=== PATIENT | female | born 1985 | race Caucasian/White ===

== ENCOUNTER → 2019-01-29 08:44 | Outpatient (CLI) | payer SELFPAY ==
[2019-01-29 12:45] LABS: Hematocrit 41.5 % (37-47); Hemoglobin 13.7 g/dl (12.0-15.0); Mean Corpuscular Hgb 29.1 pg (27.0-32.0); Mean Corpuscular Volume 88.1 fL (81-99); Mean Platelet Vol. 9.3 fl (6.2-12.0); Platelet Count 398 K/mm3 (150-450); RBC Distribution Width CV 13.9 % (11.6-14.6); RBC Distribution Width SD 45.2 fl (35.1-43.9); Red Blood Count 4.71 M/mm3 (4.2-5.4); White Blood Count 10.5 K/mm3 (4.4-11.0)
[2019-01-29 13:02] LABS: Scan Indicated on CBC? Y/N NO
[2019-01-29 13:05] LABS: hCG Titer Quant., Serum < 1 mIU/mL (1-3)
[2019-01-29 13:10] LABS: Hemoglobin A1c 5.2 % (4.2-6.3)
[2019-01-29 13:30] LABS: Estradiol 66.3 pg/mL; Free T3 2.8 pg/mL (2.18-3.98); T4 Free Direct 0.91 ng/dL (0.76-1.46); Thyroid Stim Hormone (TSH) 3.28 uIU/mL (0.358-3.74)
== END ==
PROVIDERS: Visit Provider Obstetrics & Gynecology
DX: N92.6 Irregular menstruation, unspecified (principal); N94.6 Dysmenorrhea, unspecified
CPT/HCPCS: 36415; 82670; 83036; 84144; 84403; 84439; 84443; 84481; 84702; 85027

== ENCOUNTER 2019-02-09 07:32 | Emergency (ER) | payer OTHER, SELFPAY ==
[2019-02-09 07:34] VITALS: BP 120/76; PULSE 100; RESP 16; TEMP 36.8; O2SAT 97; BMI 31.6
--- NOTE | 2019-02-09 07:51 | CT_ITS ---
STUDY: CT ABDOMEN AND PELVIS WITHOUT CONTRAST REASON FOR EXAM: Female, 33 years old. Right lower quadrant pain with radiation towards the umbilical area and lower back. RADIATION DOSAGE (If Supplied By Facility): CTDIvol = ( 11.52 ) mGy, DLP = ( 604.24 ) mGycm TECHNIQUE: Transaxial images were obtained from the dome of the diaphragm to the symphysis pubis without oral contrast, and without intravenous contrast. Sagittal and coronal images were reconstructed. Individualized dose optimization techniques were used for this CT. COMPARISON: None. FINDINGS: The visualized lung bases are unremarkable. The visualized portions of the heart are within normal limits. Normal liver. Normal gallbladder and extrahepatic biliary system. Normal spleen. Normal pancreas. Normal bilateral adrenal glands. Normal right kidney. A tiny calculus is seen in the upper pole calyx of the left kidney. Normal visualized stomach. Normal small intestine. Normal colon. The appendix is visualized and appears normal. Findings suggestive of small lymph nodes in the right lower quadrant mesentery suggestive of mesenteric adenitis. Normal abdominal aorta. Normal inferior vena cava. Normal retroperitoneum. Normal urinary bladder. Calcified phleboliths are seen within the pelvis. Normal abdominal wall. Normal osseous structures. CT/Abdomen/Pelvis without Cont IMPRESSION: Normal unenhanced CT of the abdomen and pelvis. Electronically Signed: Ry Morris, at 10:29 EDT , Service support ,
[2019-02-09 08:10] LABS: Absolute Lymphocyte Count 2.45 X10^3/ul (0.83-4.51); Basophil# 0.04 X10^3/uL; Basophil% 0.3 % (0-1); Eosinophil# 0.09 X10^3/uL; Eosinophils% 0.6 % (0-5); Hematocrit 38.6 % (37-47); Hemoglobin 12.6 g/dl (12.0-15.0); Lymphocyte # 2.45 X10^3/ul (4.0); Lymphocyte % 16.2 % (19-41); Mean Corp Hgb Conc 32.6 g/gl (32-36); Mean Corpuscular Hgb 28.7 pg (27.0-32.0); Mean Corpuscular Volume 87.9 fL (81-99); Mean Platelet Vol. 8.2 fl (6.2-12.0); Monocyte# 1.56 X10^3/uL; Monocyte% 10.3 % (0-10); Neutrophil # 11.01 X10^3/uL (2.7-7.7); Neutrophil % 72.5 % (47-70); Platelet Count 335 K/mm3 (150-450); RBC Distribution Width CV 13.9 % (11.6-14.6); RBC Distribution Width SD 45.2 fl (35.1-43.9); Red Blood Count 4.39 M/mm3 (4.2-5.4); White Blood Count 15.2 K/mm3 (4.4-11.0)
[2019-02-09 08:11] LABS: Differential Indicated SCAN CRITERIA MET; POSITIVE COUNT NO; POSITIVE DIFFERENTIAL YES; POSITIVE MORPHOLOGY NO
[2019-02-09 08:25] LABS: ALB/GLOB Ratio 0.8 RATIO (0.9-2.4); AST(SGOT) 15 U/L (15-37); Alanine Aminotransfer ALT/SGPT 19 U/L (13-56); Albumin, Serum 3.2 g/dL (3.2-5.0); Alkaline Phosphatase 81 U/L (45-117); Anion Gap 10 (5-15); BUN 9 mg/dL (7-18); BUN/Creat Ratio 11.6 RATIO (10-20); Calcium,Total 8.8 mg/dL (8.5-10.1); Chloride 104 mmol/L (98-107); Creatinine, Serum 0.77 mg/dL (0.55-1.02); EST Glomerular Filtration Rate 92 mL/min (>60); Est Glom Filt Rate - Afr Amer 112 mL/min (>60); Estimated Creatinine Clearance 91.41 ml/min; Globulin 4.2 g/dL (2.2-4.2); Glucose 165 mg/dL (74-106); Lipase 97 U/L (73-393); Potassium 3.2 mmol/L (3.5-5.1); Protein, Total 7.4 g/dL (6.4-8.2); Sodium Level 142 mmol/L (136-145)
[2019-02-09 08:29] LABS: Differential Comment SCANNED
[2019-02-09] MEDS: 0.9% Normal Saline 1,000 ML 1000 ML IV (08:45)
[2019-02-09 09:40] LABS: Mucous, Urine 0 SEEN /hpf (<or=2+)
[2019-02-09 09:45] LABS: Color, Urine Yellow (Yellow); Glucose, Dipstick Normal (Normal); Ketone-Dipstick Negative (Negative); Leukocyte Esterase-Dipstick 500 /ul (Negative); Nitrite-Dipstick Negative (Negative); Occult Blood-Urine 50 /ul (Negative); Protein-Dipstick 15 mg/dl (Negative); Specific Gravity, Urine 1.005 (1.002-1.030); Urine Bilirubin Dipstick Negative (Negative); Urine Clarity Clear (Clear); Urine Urobilinogen Normal (Normal)
[2019-02-09 09:51] LABS: Bacteria 1+ /hpf (None Seen); Red Blood Cells-Urine 0-5 SEEN /hpf (0-5); Squamous Epithelial Cells - UA 0-5 SEEN /hpf (5-10); White Blood Cells 25-50 SEEN /hpf (0-5)
[2019-02-09 09:58] VITALS: TEMP 36.6
[2019-02-09 10:00] VITALS: TEMP 36.6
[2019-02-09 10:06] LABS: Internal QC Validated? YES +Cl - CLEAR BKGD; Pregnancy, Urine Negative Negative
--- NOTE | 2019-02-09 10:45 | ED.DCSUM_ITS ---
- ER Visit Summary Date of Service: 02/09/19 Chief Complaint: Pain History of Present Illness: The patient is a 33 F with right flank pain. Symptoms started about 5 days ago. Over the past 2 days, she is having associated fevers. She does report some urinary frequency and dysuria. She was concerned about kidney stones. No history of kidney stones. 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 Denies any other associated symptoms. Physical Examination: Afebrile and vital signs unremarkable. Patient has right lower quadrant and right flank tenderness. No guarding or rebound. Otherwise exam unremarkable. Test Results: White count 15.2. Potassium 3.2. Hepatic panel and lipase unremarkable. Urinalysis shows signs of infection. Cultures pending. test negative. CT unremarkable. Emergency Department Course and Treatment: Patient treated with IV fluids. She declined pain medicine. Patient has signs of a UTI and a leukocytosis. She does meet sepsis criteria, but is well-appearing. I believe she is appropriate for outpatient care at this time. I discussed the risks of sepsis versus inpatient care, and she will return if she has any issues or worsening symptoms. Treated with Keflex. Cultures pending. Follow-up with primary care for recheck or return right away for new or worsening issues. Treatment Plan: As above Disposition: Discharge Impression: 1. Acute right pyelonephritis This note was generated with [employer] dictation software. It may contain incorrect words, spelling, and punctuation that were not noted in review of the chart prior to signing ED Disposition - Plan for ED Patient: Referrals: Vini Berry DO [Primary Care Provider] -
--- NOTE | 2019-02-09 10:47 | ED.DEP ---
ED Disposition - Plan for ED Patient: Instructions: ED Kidney Infec Female Prescriptions: Cephalexin [Keflex] 500 mg PO Q6 #40 cap Referrals: Vini Berry DO [Primary Care Provider] -
[2019-02-09 11:00] VITALS: BP 124/75; PULSE 89; PULSE 98; RESP 18; RESP 19; TEMP 36.6; O2SAT 99
== END 2019-02-09 11:03 | disposition home or self-care (01) ==
LOC: ED 08:00
PROVIDERS: Emergency Provider Emergency Medicine; Family Provider Family Medicine; PCP Family Medicine
DX: N10 Acute pyelonephritis (principal)
CPT/HCPCS: 74176; 80053; 81001; 81025; 83690; 85025; 87077; 87086; 87088; 96360; 96361; 99283; J7030; A4216

== ENCOUNTER → 2019-05-13 16:17 | Outpatient (CLI) | payer OTHER, SELFPAY ==
[2019-05-13 18:06] LABS: Free T3 2.3 pg/mL (2.18-3.98); T4 Free Direct 0.88 ng/dL (0.76-1.46); Thyroid Stim Hormone (TSH) 2.07 uIU/mL (0.358-3.74)
== END ==
PROVIDERS: Visit Provider Obstetrics & Gynecology
DX: N93.8 Other specified abnormal uterine and vaginal bleeding (principal)
CPT/HCPCS: 36415; 84439; 84443; 84481

== ENCOUNTER → 2020-09-05 | Outpatient (CLI) | payer SELFPAY ==
[2020-09-07 03:07] LABS: Chlamydia By Nucleic Acid AMP Negative (Negative)
[2020-09-07 13:53] LABS: Gonococcus By Nucleic Acid AMP Negative (Negative)
== END | disposition home or self-care (01) ==
LOC: LABSPEC 10:16
PROVIDERS: Visit Provider Obstetrics & Gynecology
DX: Z11.3 Encounter for screening for infections with a predominantly sexual mode of transmission (principal)
CPT/HCPCS: 87491; 87591

== ENCOUNTER → 2024-04-08 | Outpatient (CLI) | payer MEDICAID, SELFPAY ==
[2024-04-15 16:11] LABS: HPV APTIMA, High Risk Negative (Negative)
== END | disposition home or self-care (01) ==
PROVIDERS: Referring Provider Nurse Practitioner Family; Visit Provider Nurse Practitioner Family
DX: Z12.4 Encounter for screening for malignant neoplasm of cervix (principal)
CPT/HCPCS: 87624; 88175; G0145

== ENCOUNTER → 2024-04-13 | Outpatient (CLI) | payer MEDICAID, SELFPAY ==
--- NOTE | 2024-04-13 12:24 | US_ITS ---
INDICATION: pelvic pain; IUD in place EXAMINATION: Ultrasound US Pelvis Non OB Complete With Transvaginal Imaging TECHNIQUE: Transabdominal and transvaginal pelvic ultrasound was performed. Grayscale, spectral waveform, and color flow Doppler evaluation of the adnexa. COMPARISON: Prior study dated: Dated February 09, 2019 FINDINGS: UTERUS: The uterus measures 7.4 x 2.8 x 4.7 cm. There is no uterine mass. The endometrial stripe measures 4.1 mm in AP diameter which is within normal limits. There is an intrauterine device in place in a grossly satisfactory position. RIGHT OVARY: 3.6 x 1.2 x 1.6 cm. Non-enlarged, normal echogenicity. There is normal arterial inflow and venous outflow present in the right ovary. LEFT OVARY: 3.0 x 2.0 x 2.6 cm . Non-enlarged, normal echogenicity. There is a simple appearing 2.6 x 1.5 x 2.3 cm cyst. There is normal arterial inflow and venous outflow present in the left ovary. FREE FLUID: None. The urinary bladder volume measures 392.5 mL. No filling defects are visualized within the urinary bladder. US/Pelvic w/ Transvaginal IMPRESSION: Intrauterine device in a satisfactory position. Simple 2.6 x 1.5 x 2.3 cm left ovarian cyst. Electronically Signed: Stephanie Angelo MD at 8:59 EDT ,
== END | disposition home or self-care (01) ==
LOC: US 12:21
PROVIDERS: PCP Nurse Practitioner Family; Referring Provider Nurse Practitioner Family; Visit Provider Nurse Practitioner Family
DX: R10.2 Pelvic and perineal pain (principal)
CPT/HCPCS: 76830; 76856

== ENCOUNTER 2024-05-01 11:52 | Emergency (ER) | payer SELFPAY ==
[2024-05-01 11:53] VITALS: BP 117/77; PULSE 89; RESP 16; TEMP 36.2; O2SAT 97; BMI 36.5
--- NOTE | 2024-05-01 12:36 | CT_ITS ---
STUDY: CT ABDOMEN AND PELVIS WITH CONTRAST REASON FOR EXAM: Female, 38 years old. Suprapubic to right lower quadrant abdominal pain RADIATION DOSAGE (If Supplied By Facility): CTDIvol = ( 14.07 ) mGy, DLP = ( 949.22 ) mGycm TECHNIQUE: Transaxial images were obtained from the dome of the diaphragm to the symphysis pubis without oral contrast. IV 100mL Isovue-370 was administered. Sagittal and coronal images were reconstructed. Individualized dose optimization techniques were used for this CT. COMPARISON: None. FINDINGS: The visualized lung bases are unremarkable. The visualized portions of the heart are within normal limits. Normal liver. There is a 5.8 mm cyst in the medial aspect of the left lobe of the liver. The gallbladder is contracted. Normal spleen. Normal pancreas. Normal bilateral adrenal glands. Normal right kidney. Normal left kidney. Normal visualized stomach. Normal small intestine. Fecal material is seen in the right hemicolon. Without oral contrast, difficult to evaluate the region of the descending colon in the right hepatic flexure. Can''t rule out localized inflammatory change. There are scattered colonic diverticula consistent with diverticulosis. The appendix is visualized and appears normal. Normal abdominal aorta. Normal inferior vena cava. Normal retroperitoneum. Normal urinary bladder. There is a 3.8 cm x 3 cm cyst in the left ovary. IUD is seen within the uterus. Normal abdominal wall. Normal osseous structures. Limbus vertebrae along the upper anterior endplate of the L5 vertebrae. This is a normal variant. CT/Abdomen/Pelvis W IV Cont ONLY IMPRESSION: Contracted gallbladder. Left ovarian cyst. Mild abnormal appearance of the descending colon and region of the hepatic flexure. Cannot rule out localized inflammatory process. Electronically Signed: Ry Morris MD at 14:15 EDT ,
--- NOTE | 2024-05-01 12:36 | EDS_ITS ---
HPI HPI - GI History of Present Illness Chief Complaint: Abd Pain Narrative Narrative: 38-year-old female past medical history of pelvic pain, possible endometriosis, and ovarian cyst presents with lower abdominal pain to right lower quadrant abdominal pain that she has had since Saturday. She states her symptoms began over the weekend, almost 7 days ago. She states that she rode her bicycle the other day which actually made her pain improved. She states she was told by her primary care provider that she should come in for evaluation for possible kidney stones, but she denies any dysuria or hematuria, no fevers or chills, no exacerbating or alleviating factors. No problems with bowel movements. While she might be nauseated, she has not vomited. Additionally, she states that no one here will do surgery for her suspected endometriosis, although she has an IUD in place so she does not have menstrual periods. PFSH PFSH Home Medications ?Medication ?Instructions ?Recorded ?Last Taken ?Type bupropion HCl 300 mg 24 hr tablet, 300 mg PO QAM 04/08/24 Unknown History extended release (Wellbutrin XL) levonorgestrel 21 mcg/24 hr (up to 1 device intrauterine ONCE 04/08/24 Unknown History 8 years) 52 mg intrauterine device (Mirena) lovastatin 20 mg tablet 20 mg PO DAILY 04/08/24 Unknown History tramadol 50 mg tablet 50 mg PO Q6H PRN pain #10 tabs 05/01/24 Unknown Rx Allergy/AdvReac Type Severity Reaction Status Date / Time ANESTHETIC AT DENTIST Allergy Shortness Uncoded 04/08/24 15:23 of breath Family History Father Hypertension Heart disease Kidney disease Diabetes Mother Diabetes Heart disease Social History number of children: 0 current occupational status: unemployed sexually active: No Smoking Status: Never smoker alcohol intake: never substance use type: does not use seatbelt use: always do you feel safe at home: Yes ROS ROS ED ROS Narrative Constitutional: No fever, no chills. HEENT: No sore throat. No neck pain. No loss of vision. No rhinorrhea. Cardiovascular: No chest pain. No palpitations. No pedal edema. Respiratory: No cough, no shortness of breath. Abdominal: Suprapubic to right lower quadrant greater than left lower quadrant abdominal pain. Positive nausea. No vomiting. Genitourinary: No dysuria. No hematuria. Musculoskeletal: No myalgias. No arthralgias. Neurologic: No headaches. No dizziness. No lightheadedness. Skin: No rash. No change in color. Psychiatric: No depression. No anxiety. EXAM Physical Exam Narrative Exam Narrative: Afebrile. Vital signs noted. Nontoxic-appearing. HEENT: Normocephalic. Atraumatic. PERRL, EOMI. Neck soft and supple. No point tenderness or step off. Cardiovascular: Regular rate and rhythm. No murmurs, rubs, or gallops appreciated. Respiratory: No tachypnea. Lungs clear to auscultation bilaterally. Gastrointestinal: Abdomen soft, mild tenderness to palpation suprapubic and bilateral lower quadrants of abdomen with normoactive bowel sounds. No rebound or guarding. Neurological: Awake. Alert. Nonfocal, nonlateralizing. Skin: No rash. Normal color. No pallor. Musculoskeletal: No pedal edema. Full range of motion extremities. Const Vital Signs: 05/01/24 11:53 05/01/24 13:52 Temperature 97.1 F L Temperature Source Temporal Pulse Rate 89 80 Respiratory Rate 16 18 Blood Pressure 117/77 122/80 H Blood Pressure Mean 90 94 Pulse Ox 97 99 Oxygen Delivery Method Room Air Room Air MDM MDM MDM Narrative Medical decision making narrative: Differential diagnosis includes but not limited to acute appendicitis versus ovarian cyst versus ureterolithiasis versus cystitis versus pyelonephritis. Comprehensive workup was pursued. Initial laboratories entered per nursing protocol. I do feel that she requires CT imaging to rule out appendicitis versus ovarian cyst rupture. I do feel that this imaging modality would be more beneficial initially than pelvic ultrasound. I reviewed her laboratory work and she has normal white count of 8.9, hemoglobin 13.8, hematocrit 43.2, platelet count normal at 414. Potassium slightly low at 3.4 which I think is nonspecific, glucose 89 with anion gap normal at 6. LFTs show AST of 10 with an ALT of 17 and normal. Serum is negative. Urinalysis obtained and reviewed and it is negative for infection. There are 0 WBCs. I do not feel antibiotics are indicated. Reviewed the radiology report of the CT of the abdomen and pelvis does show the left ovarian cyst which she is aware. There is no free fluid. There is comment of questionable localized inflammation of the descending colon in the right hepatic flexure, but the patient is not having any pain in the upper abdomen, it is all lower. Repeat examination shows a resting comfortably at approximately 1530. She sta mike that it feels more like there is grinding her normal spasming and her lower abdomen especially on the right middle side. I do not feel she has an acute appendicitis. She was given a Bentyl here. She states she was taking something for tendinitis that did not help but she is only allowed to take Tylenol with it. 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 I feel she can be discharged safely home with follow-up. Return instructions to the emergency department were reviewed. Disposition is discharged home in stable condition. History & Record Review Discussion w/independent historian: Patient Lab Data Attestation: I reviewed the patient's lab results. Labs: Laboratory Results - last 24 hr 05/01/24 05/01/24 12:43 13:40 WBC 8.9 RBC 4.79 Hgb 13.8 Hct 43.2 MCV 90.2 MCH 28.8 MCHC 31.9 L RDW Std Deviation 42.9 RDW Coeff of Talia 13.0 Plt Count 414 MPV 8.3 Immature Gran % (Auto) 0.200 Neut % (Auto) 55.4 Lymph % (Auto) 31.4 [place] % (Auto) 10.5 H Eos % (Auto) 1.7 Baso % (Auto) 0.8 Absolute Neuts (auto) 4.9 Absolute Lymphs (auto) 2.79 Nucleated RBC % 0 Sodium 138 Potassium 3.4 L Chloride 105 Carbon Dioxide 27.0 Anion Gap 6 BUN 11 Creatinine 0.73 Estim Creat Clear Calc 115.74 Est GFR (MDRD) Af Amer 115 Est GFR (MDRD) Non-Af 95 BUN/Creatinine Ratio 15.0 Glucose 89 Calcium 8.9 Total Bilirubin 0.70 AST 10 L ALT 17 Alkaline Phosphatase 106 Total Protein 7.3 Albumin 3.5 Globulin 3.8 Albumin/Globulin Ratio 0.9 Serum , Qual NEGATIVE Urine Color Yellow Urine Clarity Clear Urine pH 6.5 Ur Specific [place] 1.005 Urine Protein Negative Urine Glucose (UA) Normal Urine Ketones Negative Urine Occult Blood Negative Urine Nitrite Negative Urine Bilirubin Negative Urine Urobilinogen Normal Ur Leukocyte Esterase Negative Urine RBC 0 SEEN Urine WBC 0 SEEN Ur Squamous Epith Cells 0-5 SEEN Urine Bacteria 1+ Urine Mucus 0 SEEN Radiography Diagnostic Testing: Clinical Impression(s) from Imaging Studies Abdomen/Pelvis CT 05/01/24 12:36 IMPRESSION: Contracted gallbladder. Left ovarian cyst. Mild abnormal appearance of the descending colon and region of the hepatic flexure. Cannot rule out localized inflammatory process. Electronically Signed: Ry Morris MD at 14:15 EDT , Discharge Plan Triage Chief Complaint: Abd Pain ED Provider: Devin Eldridge Dx/Rx/DC Orders Clinical Impression: Pelvic pain, Ovarian cyst, Lower abdominal pain Instructions: ED Abdominal Pain Unkn Cause Fem, ED Ovarian Cyst, ED Pelvic Pain, Unknown Cause Prescriptions: New tramadol 50 mg tablet 50 mg PO Q6H PRN (Reason: pain) Qty: 10 0RF No Action Mirena 21 mcg/24 hr (8 yrs) 52 mg intrauterine device 1 device intrauterine ONCE Rx Instructions: as a single dose bupropion HCl [Wellbutrin XL] 300 mg tablet extended release 24 hr 300 mg PO QAM lovastatin 20 mg tablet 20 mg PO DAILY Primary Care Provider: NATHANIEL SUH Referrals: NATHANIEL SUH, INSURANCE CLAIMS SUPERVISOR-C [Primary Care Provider] - 3-5 Days if not improving Activity Restrictions/Additional Instructions: Return with fever, increased pain, new or worsening symptoms. Print Language: Nigerien Disposition Disposition: Home, Self Care
[2024-05-01 12:48] LABS: Absolute Lymphocyte Count 2.79 X10^3/uL (0.83-4.51); Absolute Neutrophil Count 4.9 X10^3/uL (2.0-7.7); Basophil# 0.07 X10^3/uL; Basophil% 0.8 % (0-1); Eosinophil# 0.15 X10^3/uL; Eosinophils% 1.7 % (0-5); Hematocrit 43.2 % (37-47); Hemoglobin 13.8 g/dL (12.0-15.0); Lymphocyte # 2.79 X10^3/ul (0.83-4.51); Lymphocyte % 31.4 % (19-41); Mean Corp Hgb Conc 31.9 g/dL (32-36); Mean Corpuscular Hgb 28.8 pg (27.0-32.0); Mean Corpuscular Volume 90.2 fL (81-99); Mean Platelet Vol. 8.3 fl (6.2-12.0); Monocyte# 0.93 X10^3/uL; Monocyte% 10.5 % (0-10); NRBC Flagged by Analyzer 0 % (0-5); Neutrophil # 4.92 X10^3/uL (2.7-7.7); Neutrophil % 55.4 % (47-70); Platelet Count 414 K/mm3 (150-450); RBC Distribution Width SD 42.9 fl (35.1-43.9); Red Blood Count 4.79 M/mm3 (4.2-5.4); White Blood Count 8.9 K/mm3 (4.4-11.0)
[2024-05-01 12:59] LABS: Internal QC Validated? YES +Cl - CLEAR BKGD; Pregnancy, Serum, hCG Quali. NEGATIVE Negative; Record Kit Lot#, Serum Preg. HCG0000772476
[2024-05-01 13:05] LABS: ALB/GLOB Ratio 0.9 RATIO (0.9-2.4); AST(SGOT) 10 U/L (15-37); Alanine Aminotransfer ALT/SGPT 17 U/L (13-56); Albumin, Serum 3.5 g/dL (3.2-5.0); Alkaline Phosphatase 106 U/L (45-117); Anion Gap 6 (5-15); BUN 11 mg/dL (7-18); Calcium,Total 8.9 mg/dL (8.5-10.1); Chloride 105 mmol/L (98-107); Creatinine, Serum 0.73 mg/dL (0.55-1.02); EST Glomerular Filtration Rate 95 mL/min (>60); Est Glom Filt Rate - Afr Amer 115 mL/min (>60); Estimated Creatinine Clearance 115.74 ml/min; Globulin 3.8 g/dL (2.2-4.2); Glucose 89 mg/dL (74-106); Potassium 3.4 mmol/L (3.5-5.1); Protein, Total 7.3 g/dL (6.4-8.2); Sodium Level 138 mmol/L (136-145)
[2024-05-01 13:51] LABS: Mucous, Urine 0 SEEN /hpf (<or=2+); Red Blood Cells-Urine 0 SEEN /hpf (0-5); White Blood Cells 0 SEEN /hpf (0-5)
[2024-05-01 13:52] VITALS: BP 122/80; PULSE 80; RESP 18; O2SAT 99
[2024-05-01 14:00] LABS: Color, Urine Yellow (Yellow); Glucose, Dipstick Normal (Normal); Ketone-Dipstick Negative (Negative); Leukocyte Esterase-Dipstick Negative /ul (Negative); Nitrite-Dipstick Negative (Negative); Occult Blood-Urine Negative /ul (Negative); Protein-Dipstick Negative (Negative); Specific Gravity, Urine 1.005 (1.002-1.030); Urine Bilirubin Dipstick Negative (Negative); Urine Clarity Clear (Clear); Urine Urobilinogen Normal (Normal); Urine pH 6.5 (5.0 - 8.0)
[2024-05-01 14:08] LABS: Bacteria 1+ /hpf (None Seen); Squamous Epithelial Cells - UA 0-5 SEEN /hpf (5-10)
[2024-05-01 15:00] VITALS: BP 122/84; PULSE 63; RESP 18
[2024-05-01] MEDS: Dicyclomine 10 MG Capsule 20 MG PO (16:18)
[2024-05-01 16:22] VITALS: PULSE 60; RESP 18; TEMP 36.7; O2SAT 98
== END 2024-05-01 16:22 | disposition home or self-care (01) ==
PROVIDERS: Emergency Provider Emergency Medicine; PCP Nurse Practitioner Family; Visit Provider Emergency Medicine
DX: R10.31 Right lower quadrant pain (principal); R10.32 Left lower quadrant pain; R10.2 Pelvic and perineal pain; N83.202 Unspecified ovarian cyst, left side; Z97.5 Presence of (intrauterine) contraceptive device
CPT/HCPCS: 74177; 80053; 81001; 84703; 85025; 99283; Q9967; A4216

== ENCOUNTER → 2024-06-02 | Outpatient (CLI) | payer MEDICAID, SELFPAY ==
[2024-06-02 16:17] LABS: Erythrocyte Sedimentation Rate 27 mm/hr (0-30)
[2024-06-02 16:48] LABS: Free T3 2.3 pg/mL (2.18-3.98); LDH 159 U/L (84-246)
[2024-06-07 13:06] LABS: Anti-Centromere B Ab <0.2 AI (0.0-0.9); Anti-Chromatin <0.2 AI (0.0-0.9); Anti-Jo <0.2 AI (0.0-0.9); Anti-Scleroderma-70 AB <0.2 AI (0.0-0.9); Anti-dsDNA Ab 9 IU/mL (0-9); Beef <0.10 kU/L (Class 0); Chocolate <0.10 kU/L (Class 0); Codfish <0.10 kU/L (Class 0); Corn 0.11 kU/L (Class 0/I); Egg, Whole <0.10 kU/L (Class 0); Milk (Cow) <0.10 kU/L (Class 0); Mussels <0.10 kU/L (Class 0); Pork <0.10 kU/L (Class 0); RNP Ab 0.4 AI (0.0-0.9); SJOGREN'S Anti-SS-A test < 0.2 AI (0.0-0.9); SJOGREN'S Anti-SS-B test < 0.2 AI (0.0-0.9); Salmon <0.10 kU/L (Class 0); Shrimp 0.31 kU/L (Class 0/I); Smith Ab <0.2 AI (0.0-0.9); Soybean <0.10 kU/L (Class 0); Tuna <0.10 kU/L (Class 0); Wheat <0.10 kU/L (Class 0)
[2024-06-09 11:09] LABS: ACCA 40 units (0-90); ALCA 41 units (0-60); AMCA 65 units (0-100); Albumin 3.8 g/dL (2.9-4.4); Alpha-1-Globulins 0.3 g/dL (0.0-0.4); Alpha-2-Globulins 0.8 g/dL (0.4-1.0); Cytoplasmic Ab (C-ANCA) <1:20 titer (Neg:<1:20); Endomysial Antibody IgA Negative (Negative); Gamma Globulin 1.3 g/dL (0.4-1.8); Immunoglobulin A 241 mg/dL (87-352); Immunoglobulin E 93 IU/mL (6-495); Immunoglobulin G 1253 mg/dL (586-1602); Immunoglobulin M 95 mg/dL (26-217); PROEL- TOTAL PROTEIN 7.2 g/dL (6.0-8.5); Perinuclear Ab (P-ANCA) <1:20 titer (Neg:<1:20); gASCA 21 units (0-50); t-Transglutaminase IgA <2 U/mL (0-3)
== END | disposition home or self-care (01) ==
LOC: LAB 15:29
PROVIDERS: PCP Nurse Practitioner Family
DX: K57.90 Diverticulosis of intestine, part unspecified, without perforation or abscess without bleeding (principal); K59.01 Slow transit constipation
CPT/HCPCS: 36415; 82784; 82785; 83516; 83615; 84165; 84481; 85652; 86003; 86005; 86036; 86037; 86140; 86225; 86235; 86255; 86334; 86671

== ENCOUNTER → 2024-06-03 | Outpatient (CLI) | payer MEDICAID, SELFPAY ==
[2024-06-07 01:06] LABS: Calprotectin, Stool 47 ug/g (0-120)
== END | disposition home or self-care (01) ==
LOC: LABSPEC 13:43
PROVIDERS: PCP Nurse Practitioner Family
DX: K57.90 Diverticulosis of intestine, part unspecified, without perforation or abscess without bleeding (principal); K59.01 Slow transit constipation; K58.9 Irritable bowel syndrome, unspecified
CPT/HCPCS: 83630; 83993

== ENCOUNTER → 2024-06-08 | Outpatient (CLI) | payer MEDICAID, SELFPAY ==
--- NOTE | 2024-06-08 13:00 | US_ITS ---
STUDY: ULTRASOUND OF THE FEMALE PELVIS - REASON FOR EXAM: Female, 38 years old. Left ovarian [id number]. LMP: Unknown. TECHNIQUE: Transabdominal and Transvaginal TECHNICAL QUALITY: Adequate. COMPARISON: April 13, 2024 FINDINGS: The uterus is anteverted and is in a midline position. The uterus measures 7.0 x 4.0 x 3.2 cm. Normal uterine cervix. The endometrium measures 4 mm in thickness, and is hyperechoic. There is no demonstrated endometrial mass. There is no demonstrated myometrial mass. I.U.D. - The patient does have an I.U.D. in the fundal endometrium. The right ovary is visualized. The right ovary measures 3.7 x 3.0 x 2.0 cm. There is 3.1 cm cyst with septations. There is normal arterial and normal venous vascularity. The left ovary is visualized. The left ovary measures 2.6 x 2.4 x 0.8 cm. There is no left ovarian cyst or ovarian mass. There is no visualized left adnexal mass or complex lesion. There is normal arterial and normal venous vascularity. There is no fluid in the cul-de-sac. The pre void volume of the bladder was 218 ml. US/Pelvic w/ Transvaginal IMPRESSION: Right ovarian cyst. Improvement of previously seen left ovarian cyst. Electronically Signed: Logan Rodriguez MD at 11:17 EDT ,
== END | disposition home or self-care (01) ==
LOC: US 13:00
PROVIDERS: PCP Nurse Practitioner Family; Referring Provider Nurse Practitioner Family; Visit Provider Nurse Practitioner Family
DX: N83.202 Unspecified ovarian cyst, left side (principal)
CPT/HCPCS: 76830; 76856

== ENCOUNTER → 2024-08-12 | Outpatient (CLI) | payer MEDICAID, SELFPAY ==
--- NOTE | 2024-08-12 15:30 | US_ITS ---
STUDY: ULTRASOUND OF THE FEMALE PELVIS - COMPLETE REASON FOR EXAM: Female, 38 years old. Monitor bilateral cysts LMP: July 13, 2024. TECHNIQUE: Transabdominal and Transvaginal TECHNICAL QUALITY: Adequate. COMPARISON: Comparison is made with prior study dated June 08, 2024. FINDINGS: The uterus is anteverted and is in a midline position. The uterus measures 6.1 cm x 4.7 cm x 2.8 cm. Normal uterine cervix. The endometrium measures 3 mm in thickness, and is hyperechoic. There is no demonstrated endometrial mass. There is no demonstrated myometrial mass. I.U.D. - The patient does have an I.U.D. in the fundal endometrial The right ovary is visualized. The right ovary measures 2.1 cm x 1.7 cm x 1.1 cm. There is no right ovarian cyst or ovarian mass. There is no visualized right adnexal mass or complex lesion. There is normal arterial and normal venous vascularity. The left ovary is visualized. The left ovary measures 2.1 cm x 1.9 cm x 1.2 cm. A dominant follicle is seen within the left ovary measuring 1.4 cm x 1.3 cm x 0.9 cm. There is no visualized left adnexal mass or complex lesion. There is normal arterial and normal venous vascularity. There is no fluid in the cul-de-sac. The pre void volume of the bladder was 65 ml. US/Pelvic w/ Transvaginal IMPRESSION: Dominant follicle in the left ovary. IUD is seen within the endometrium. Electronically Signed: Ry Morris MD at 13:33 EST ,
== END | disposition home or self-care (01) ==
LOC: US 15:30
PROVIDERS: PCP Nurse Practitioner Family; Referring Provider Nurse Practitioner Family; Visit Provider Nurse Practitioner Family
DX: N83.201 Unspecified ovarian cyst, right side (principal); N83.202 Unspecified ovarian cyst, left side
CPT/HCPCS: 76830; 76856

== ENCOUNTER 2024-08-17 05:36 | Day surgery (SDC) | payer MEDICAID, SELFPAY ==
[2024-08-17] VITALS (8 sets, daily range): BP systolic 105–117; BP diastolic 71–86; PULSE 62–97; RESP 16–18; TEMP 36.6; O2SAT 96–99; BMI 35.9
--- NOTE | 2024-08-17 | IMM_PTH ---
PATIENT: ALETHEA BARTLETT LOC: EN U#:[id number] AGE/SX: 38/F ROOM: RE08/17/[address]: Dr. Norberto Henriquez DO : 1985 BED: DIS: 08/17/2024 SPEC #: [id number] RECD: 08/17/24 12:32 STATUS: TERRIE REQ #: [id number] STEFANIE: 08/17/24 00:[address]: Norberto Henriquez DEPT: IMMUNOHISTOCHEMISTRY RECD BY: Pa Henry ENTERED: 08/17/24 12:33 SP TYPE: IMMUNO OTHR DR: NATHANIEL SUH, CHIP Tissues: Gastric mucous membrane Procedures: H Pylori (initial) PHYSICIAN & [place] [id number] SPECIMEN INFORMATION: Tissue Source: B. Gastric body Clinical Info: Abdominal pain Specimen Number: [id number] CPT code: 77170 METHODOLOGY: Deparaffinized sections of prefer/formalin-fixed tissue or PAP/DQ stained slides are incubated with monoclonal/polyclonal antibodies/oligonucleotide probes. Localization is made via biotin free immunoperoxidase method. Appropriate controls are performed and reacted as expected. Results on target cell population are indicated in the following table: RESULTS: ANTIBODY / CLONE RESULT H Pylori (polyclonal) negative These tests were developed and their performance characteristics determined by [facility]. They may not have been cleared or approved by the U.S. Food and Drug Administration. The FDA has determined that such clearance or approval is not necessary. The above immunohistochemical/dualISH markers are ordered and reviewed by the Pathologist. INTERPRETATION: B. Gastric body, biopsy: Negative for Helicobacter pylori organisms. SJ:wayne 08/18/24
[2024-08-17 06:29] LABS: Internal QC Validated? YES +Cl - CLEAR BKGD; Pregnancy, Urine Negative Negative
--- NOTE | 2024-08-17 06:39 | PRE.ANES_ITS ---
ASA Classification* ASA Classification ASA Classification: 2 Assessment & Plan Anesthesia* Anesthesia Assessment Anesthesia Assessment: Discussed sedation and/or anesthesia options, risks, benefits, and alternatives with patient/parents/legal guardian/POA. Questions invited. The patient/parents/legal guardian/POA seems to understand and agrees to proceed with anesthesia plan. Reviewed the physical assessment, medical history, allergy history and patient home medications list prior to surgery/procedure/anesthetic and documented any changes. Performed airway and anesthesia risk assessments. Anesthesia Type Anesthesia Type: MAC Anesthesia Focused Assessment* Temperature: 98 F Pulse Rate: 62 Blood Pressure: 115/75 Respiratory Rate: 17 Pulse Ox: 98 Airway Assessment Mouth opens: >3 cm Mallampati Score: II Focused Labs Anesthesia Preop lab: CBC WBC 8.9 K/mm3 (4.4-11.0) 05/01/24 12:43 RBC 4.79 M/mm3 (4.2-5.4) 05/01/24 12:43 Hgb 13.8 g/dL (12.0-15.0) 05/01/24 12:43 Hct 43.2 % (37-47) 05/01/24 12:43 Plt Count 414 K/mm3 (150-450) 05/01/24 12:43 CHEMISTRY Potassium 3.4 mmol/L (3.5-5.1) L 05/01/24 12:43 Sodium 138 mmol/L (136-145) 05/01/24 12:43 BUN 11 mg/dL (7-18) 05/01/24 12:43 Creatinine 0.73 mg/dL (0.55-1.02) 05/01/24 12:43 Glucose 89 mg/dL (74-106) 05/01/24 12:43 TSH 2.07 uIU/mL (0.358-3.74) 05/13/19 16:19 COAG HCG, Quant < 1 mIU/mL (1-3) 01/29/19 08:50 Urine Test Negative Negative 08/17/24 06:15 Pre-Assessment Diagnosis/Proposed Procedure Planned Operative Procedure(s): EGD, CSCOPE Anesthesia 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 When Was Last Pacemaker Check QUESTION #4 FULL TEXT: You/Your Family Experience fever (hyperthermia) with Anesthesia Last Oral Intake Last Oral intake: Last Oral Intake NPO since 04:00 08/17/24 06:25 Meds taken in AM with sips of Yes 08/17/24 06:25 water? 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 Female Yes 08/12/24 16:22 HX of Motion Sickness No 08/12/24 16:22 HX of N/V After Surgery No 08/12/24 16:22 Non-Smoker Yes 08/12/24 16:22 Duration of Surgery greater No 08/12/24 16:22 than 60 minutes Number of Risk Factors 2 08/12/24 16:22 PONV Score Moderate Risk 08/12/24 16:22 Height & Weight Height & Weight: Anesthesia: Height & Weight Height 5 ft 3 in 08/17/24 06:25 Weight: 91.9 kg 08/17/24 06:25 Body Mass Index (BMI) 35.9 08/17/24 06:25 Respiratory Assessment Respiratory Assessment - newspaper distributor supervisor: Respiratory Tract Infection Hx - newspaper distributor supervisor Hx Respiratory Tract Infection No 08/12/24 16:22 STOP Sleep Apnea STOP Sleep Apnea - newspaper distributor 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 Has anyone observed you stop No 08/12/24 16:22 breathing during sleep? STOP Results Negative 08/12/24 16:22 QUESTION #5 FULL TEXT : Do you snore loudly (louder than talking or can be heard through closed doors)? 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 Specify any problems Hx of Preganancy in last 3 N/A 08/12/24 16:22 Months Nurse Filling Out Transfusion NBUCHER 08/12/24 16:22 & Questions: Date: 08/12/24 08/12/24 16:22 Time: 16:23 08/12/24 16:22 Patient unable to answer at this time (ie. 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: /Reproductive Hx- newspaper distributor supervisor Hx Now No 08/12/24 16:22 Gestational Age (in weeks): EDC: Hx Hx Para Hx Section SAB No 08/12/24 16:22 [facility] History Depression Anxiety Wears glasses History of edema Home Medications ?Medication ?Instructions ?Recorded ?Last Taken ?Type bupropion HCl 300 mg 24 hr tablet, 300 mg PO QAM 04/08/24 08/16/24 History extended release (Wellbutrin XL) levonorgestrel (Mirena) 1 device intrauterine ONCE 04/08/24 08/17/24 History omeprazole 20 mg tablet,delayed 20 mg PO BID #60 caps 06/05/24 08/16/24 Rx release semaglutide 0.25 mg or 0.5 mg (2 0.25 mg subcut MO 08/12/24 08/10/24 History mg/3 mL) subcutaneous pen injector Allergy/AdvReac Type Severity Reaction Status Date / Time Iodinated Contrast Media (iv Allergy Mild Hives Verified 08/17/24 06:24 contrast dye) ANESTHETIC AT DENTIST Allergy Shortness Uncoded 08/17/24 06:25 of breath Family History Father Hypertension Heart disease Kidney disease Diabetes Mother Diabetes Heart disease Social History number of children: 0 current occupational status: unemployed sexually active: No Smoking Status: Never smoker alcohol intake: never substance use type: does not use seatbelt use: always do you feel safe at home: Yes Review of Systems (Anesthesia) ROS Narrative System reviewed and no additional complaints, except as documented.
--- NOTE | 2024-08-17 07:00 | EGD_PTH ---
PATIENT: ALETHEA BARTLETT LOC: EN U#:[id number] AGE/SX: 38/F ROOM: RE08/17/[address]: Dr. Norberto Henriquez DO : 1985 BED: DIS: 08/17/2024 SPEC #: [id number] RECD: 08/17/24 08:52 STATUS: TERRIE REParvez #: [id number] STEFANIE: 08/17/24 07:[address]: Norberto Henriquez DEPT: SURGICAL PATHOLOGY RECD BY: Carolyn Guido ENTERED: 08/17/24 12:42 SP TYPE: EGD BIOPSY OT DR: NATHANIEL SUH, JOANNE-C Tissues: A - Duodenum, NOS B - Gastric mucous membrane C - Ileum, NOS D - COLON BIOPSY Procedures: Surgery Specimen Level IV HEADER OPERATION: Colonoscopy with biopsy, EGD with biopsy PRE-OP DIAGNOSIS: Abdominal pain TISSUE SUBMITTED: A. Duodenum, B. Gastric body, C. Terminal ileum, D. Random colon MICROSCOPIC DIAGNOSIS A. Duodenum, biopsy: Fragments of duodenal mucosa, no pathologic diagnosis. B. Gastric body, biopsy: Mild gastritis. See microscopic description and comment. C. Terminal ileum, biopsy: Fragments of small intestinal mucosa, no pathologic diagnosis. D. Random colon, biopsy: Fragments of colonic mucosa with a few pigment laden macrophages, suspicious for melanosis coli. 08/18/2024 COMMENT B. The results of immunohistochemistry for Helicobacter pylori will be reported separately ([id number]). MICROSCOPIC DESCRIPTION Slides are reviewed. The specimen shows fragments of gastric mucosa with chronic inflammatory cell infiltrates in the lamina propria consisting of lymphocytes and plasma cells, consistent with mild chronic gastritis. GROSS DESCRIPTION A. Received is one container labeled with the patient name and designated duodenum. The specimen consists of multiple irregular fragments of light jacob soft tissue that in aggregate measures 1 x 0.2 x 0.1 cm. The specimen is totally submitted in one cassette. B. Received is one container labeled with the patient name and designated gastric body. The specimen consists of multiple irregular fragments of light jacob soft tissue that in aggregate measure 1.2 x 0.2 x 0.1 cm. The specimen is totally submitted in one cassette. C. Received is one container labeled with the patient name and designated terminal ileum. The specimen consists of multiple irregular fragments of light jacob soft tissue that in aggregate measure 1 x 1 x 0.1 cm. The specimen is totally submitted in one cassette. D. Received is one container labeled with the patient name and designated random colon. The specimen consists of multiple irregular fragments of light jacob soft tissue that in aggregate measure 2 x 0.2 x 0.1 cm. The specimen is totally submitted in one cassette. /MS:cc 08/17/24 TC:3 CPT:94195 x4
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
--- NOTE | 2024-08-17 07:46 | OP.EGD_ITS ---
Patient Name: Kenia Funk Procedure Date: 08/17/2024 7:17 AM Date of : 1985 Age: 38 Procedure: Upper GI endoscopy Indications: Generalized abdominal pain, Functional Dyspepsia, Suspected esophageal reflux Providers: Norberto Henriquez DO Referring MD: Vinny Perez Medicines: Monitored Anesthesia Care Patient Profile: This is a 38 year old female. Refer to note in patient chart for documentation of history and physical. Patient has symptoms of chronic abdominal cramping, chronic abdominal distention, chronic global abdominal pain, chronic dyspepsia and chronic nausea. Complications: No immediate complications. Procedure: Pre-Anesthesia Assessment: - Prior to the procedure, a History and Physical was performed, and patient medications and allergies were reviewed. The patient is competent. The risks and benefits of the procedure and the sedation options and risks were discussed with the patient. All questions were answered and informed consent was obtained. Patient identification and proposed procedure were verified by the physician in the pre-procedure area. Mental Status Examination: alert and oriented. Airway Examination: normal oropharyngeal airway and neck mobility. Respiratory Examination: clear to auscultation. CV Examination: normal. Prophylactic Antibiotics: The patient does not require prophylactic antibiotics. Prior Anticoagulants: The patient has taken no anticoagulant or antiplatelet agents except for NSAID medication. ASA Grade Assessment: II - A patient with mild systemic disease. After reviewing the risks and benefits, the patient was deemed in satisfactory condition to undergo the procedure. The anesthesia plan was to use monitored anesthesia care (MAC). Immediately prior to administration of medications, the patient was re-assessed for adequacy to receive sedatives. The heart rate, respiratory rate, oxygen saturations, blood pressure, adequacy of pulmonary ventilation, and response to care were monitored throughout the procedure. The physical status of the patient was re-assessed after the procedure. After obtaining informed consent, the endoscope was passed under direct vision. Throughout the procedure, the patient's blood pressure, pulse, and oxygen saturations were monitored continuously. The colonoscope was introduced through the mouth, and advanced to the second part of duodenum. The upper GI endoscopy was accomplished without difficulty. The patient tolerated the procedure well. Scope In: 7:28:29 AM Scope Out: 7:31:24 AM Total Procedure Duration Time 0 hours 2 minutes 55 seconds Findings: The examined esophagus was normal. Patchy mildly erythematous mucosa without bleeding was found in the gastric body. Biopsies were taken with a cold forceps for histology. Verification of patient identification for the specimen was done. Estimated blood loss was minimal. Biopsies were taken with a cold forceps for Helicobacter pylori testing using CLOtest. Estimated blood loss: none. Patchy mildly erythematous mucosa without active bleeding and with no stigmata of bleeding was found in the duodenal bulb. Biopsies for histology were taken with a cold forceps for evaluation of celiac disease. Verification of patient identification for the specimen was done. Estimated blood loss was minimal. Impression: - Normal esophagus. - Erythematous mucosa in the gastric body. Biopsied. - Erythematous duodenopathy. Biopsied. Recommendation: - Discharge patient to home. - Resume previous diet. - Continue present medications. - Await pathology results. Procedure Code(s): --- Professional --- 97389, Esophagogastroduodenoscopy, flexible, transoral; with biopsy, single or multiple CPT copyright 2021 [employer]. All rights reserved. The codes documented in this report are preliminary and upon flight hostess review may be revised to meet current compliance requirements. Norberto Henriquez DO 08/17/2024 7:46:08 AM This report has been signed electronically. Number of Addenda: 0 Note Initiated On: 08/17/2024 7:17 AM
--- NOTE | 2024-08-17 07:46 | OP.CCLET_ITS ---
08/17/2024 Vinny Perez Re : Upper GI endoscopy procedure for Kenia Funk Dear Darin This procedure was performed on Saturday, August 17, 2024. My impressions and recommendations are as follows: Impressions : - Normal esophagus. - Erythematous mucosa in the gastric body. Biopsied. - Erythematous duodenopathy. Biopsied. Recommendations : - Discharge patient to home. - Resume previous diet. - Continue present medications. - Await pathology results. My findings are described in the full procedure note, which is enclosed. If I can be of further assistance, please feel free to contact me at . Sincerely, Norberto Henriquez, 08/17/2024 7:46:08 AM This report has been signed electronically.
--- NOTE | 2024-08-17 07:49 | OP.COLON_ITS ---
Patient Name: Kenia Funk Procedure Date: 08/17/2024 7:31 AM Date of : 1985 Age: 38 Procedure: Colonoscopy Indications: Evaluation of abnormal imaging study of the gastrointestinal tract (likely to be clinically significant) , Generalized abdominal pain, Clinically significant diarrhea of unexplained origin, Abnormal CT of the GI tract Providers: Norberto Henriquez DO Referring MD: Vinny Perez Medicines: Monitored Anesthesia Care Patient Profile: This is a 38 year old female. Refer to note in patient chart for documentation of history and physical. Patient has symptoms of chronic abdominal cramping, chronic abdominal distention, chronic global abdominal pain, chronic dyspepsia and chronic nausea. Last Colonoscopy: none. The patient's first colonoscopy is today. Complications: No immediate complications. Procedure: Pre-Anesthesia Assessment: - Prior to the procedure, a History and Physical was performed, and patient medications and allergies were reviewed. The patient is competent. The risks and benefits of the procedure and the sedation options and risks were discussed with the patient. All questions were answered and informed consent was obtained. Patient identification and proposed procedure were verified by the physician in the pre-procedure area. Mental Status Examination: alert and oriented. Airway Examination: normal oropharyngeal airway and neck mobility. Respiratory Examination: clear to auscultation. CV Examination: normal. Prophylactic Antibiotics: The patient does not require prophylactic antibiotics. Prior Anticoagulants: The patient has taken no anticoagulant or antiplatelet agents except for NSAID medication. ASA Grade Assessment: II - A patient with mild systemic disease. After reviewing the risks and benefits, the patient was deemed in satisfactory condition to undergo the procedure. The anesthesia plan was to use monitored anesthesia care (MAC). Immediately prior to administration of medications, the patient was re-assessed for adequacy to receive sedatives. The heart rate, respiratory rate, oxygen saturations, blood pressure, adequacy of pulmonary ventilation, and response to care were monitored throughout the procedure. The physical status of the patient was re-assessed after the procedure. After I obtained informed consent, the scope was passed under direct vision. Throughout the procedure, the patient's blood pressure, pulse, and oxygen saturations were monitored continuously. The colonoscope was introduced through the anus and advanced to the terminal ileum. The colonoscopy was performed without difficulty. The patient tolerated the procedure well. The quality of the bowel preparation was adequate. The terminal ileum, ileocecal valve, appendiceal orifice, and rectum were photographed. Scope In: 7:32:41 AM Scope Withdrawal Time 0 hours 7 minutes 15 seconds Scope Out: 7:42:01 AM Total Procedure Duration Time 0 hours 9 minutes 20 seconds Findings: The perianal and digital rectal examinations were normal. Multiple small and large-mouthed diverticula were found in the recto-sigmoid colon, sigmoid colon and descending colon. An area of mildly congested mucosa was found in the sigmoid colon, at the splenic flexure and in the ascending colon. Biopsies were taken with a cold forceps for histology. Verification of patient identification for the specimen was done. Estimated blood loss was minimal. A localized area of the terminal ileum was congested. Several biopsies were obtained with cold forceps for histology in a targeted manner. Verification of patient identification for the specimen was done. Estimated blood loss was minimal. Impression: - Diverticulosis in the recto-sigmoid colon, in the sigmoid colon and in the descending colon. - Congested mucosa in the sigmoid colon, at the splenic flexure and in the ascending colon. Biopsied. - Congested mucosa in the terminal ileum. - Several biopsies were obtained. Recommendation: - Discharge patient to home. - Resume previous diet. - Continue present medications. - Await pathology results. - Repeat colonoscopy in 5 years for surveillance. Procedure Code(s): --- Professional --- 28780, Colonoscopy, flexible; with biopsy, single or multiple CPT copyright 2021 [employer]. All rights reserved. The codes documented in this report are preliminary and upon development engineer review may be revised to meet current compliance requirements. Norberto Henriquez DO 08/17/2024 7:49:12 AM This report has been signed electronically. Number of Addenda: 0 Note Initiated On: 08/17/2024 7:31 AM
--- NOTE | 2024-08-17 07:49 | OP.CCLET_ITS ---
08/17/2024 Vinny Perez Re : Colonoscopy procedure for Kenia Funk Dear Darin This procedure was performed on Saturday, August 17, 2024. My impressions and recommendations are as follows: Impressions : - Diverticulosis in the recto-sigmoid colon, in the sigmoid colon and in the descending colon. - Congested mucosa in the sigmoid colon, at the splenic flexure and in the ascending colon. Biopsied. - Congested mucosa in the terminal ileum. - Several biopsies were obtained. Recommendations : - Discharge patient to home. - Resume previous diet. - Continue present medications. - Await pathology results. - Repeat colonoscopy in 5 years for surveillance. My findings are described in the full procedure note, which is enclosed. If I can be of further assistance, please feel free to contact me at . Sincerely, Norberto Henriquez, 08/17/2024 7:49:12 AM This report has been signed electronically.
--- NOTE | 2024-08-17 07:50 | PCM.POST.ANE ---
Anesthesia: Postop Eval I Current Vital Signs Temperature: 97.9 F Pulse Rate: 97 Blood Pressure: 105/78 Respiratory Rate: 16 Pulse Ox: 99 Oxygen Delivery Method: Room Air Assessment Airway patent: Yes Spontaneous unlabored respirations: Yes Mental status: Awake and Calm nausea: No Vomiting: No Anesthesia Complication: No Fluid Hydration Crystalloid volume administer (ml): 50 Total IV fluid infused: 50 Progress Note Anesthesia document: Postop Eval 1 completed: Yes
--- NOTE | 2024-08-17 08:27 | PCM.POSTANE2 ---
Anesthesia Postop Eval I Sum Postop Eval Completion status Anesthesia document: Postop Eval 1 completed: Yes Anesthesia Postop Eval I Summary Anesthesia Postop Eval I Summary: Anesthesia Postop Eval I: Assessment Summary Airway patent Yes 08/17/24 07:51 [email or web address] Spontaneous unlabored Yes 08/17/24 07:51 [email or web address] respirations Mental status Awake,Calm 08/17/24 07:51 [email or web address] nausea No 08/17/24 07:51 [email or web address] Vomiting No 08/17/24 07:51 [email or web address] Anesthesia Postop Eval I: Fluid Summary Crystalloid volume administer 50 08/17/24 07:51 [email or web address] (ml) Colloids volume administered ( ml) Blood Product volume administered (ml) Total IV fluid infused 50 08/17/24 07:51 [email or web address] Anesthesia Postop Eval I: Summary Notes Anesthesia Complication No 08/17/24 07:51 [email or web address] Anesthesia Complication Comment: Post-operative progress note Anesthesia: Postop Eval II Evaluation Mental status: Awake Pain Level: 0 nausea: No Vomiting: No
== END 2024-08-17 08:43 | disposition home or self-care (01) ==
LOC: EN 05:38 → AC 05:38
PROVIDERS: Anesthesiology; PCP Nurse Practitioner Family; Referring Provider Nurse Practitioner Family; Visit Provider Internal Medicine Gastroenterology
PROC: 0DJD8ZZ Inspection of Lower Intestinal Tract, Via Natural or Artificial Opening Endoscopic (ICD-10-PCS; CPT 45378; principal; 2024-08-17 06:55)
DX: K29.50 Unspecified chronic gastritis without bleeding (principal); K31.89 Other diseases of stomach and duodenum; K57.30 Diverticulosis of large intestine without perforation or abscess without bleeding; K63.89 Other specified diseases of intestine; K21.9 Gastro-esophageal reflux disease without esophagitis; K30 Functional dyspepsia; K59.01 Slow transit constipation; Z79.899 Other long term (current) drug therapy
CPT/HCPCS: 43239; 45380; 81025; 88305; 88342; A4216; J2405

== ENCOUNTER → 2024-11-24 | Outpatient (CLI) | payer MEDICAID, SELFPAY | END | disposition home or self-care (01) | PROVIDERS: PCP Nurse Practitioner Family; Referring Provider Nurse Practitioner Acute Care; Visit Provider Nurse Practitioner Acute Care | DX: K21.9 Gastro-esophageal reflux disease without esophagitis (principal); R79.82 Elevated C-reactive protein (CRP) | CPT/HCPCS: 36415; 86140 ==

== ENCOUNTER → 2025-02-16 | Outpatient (CLI) | payer MEDICAID, SELFPAY ==
[2025-02-16 12:10] LABS: ALB/GLOB Ratio 1.3 RATIO (0.9-2.4); AST(SGOT) 18 U/L (<=31); Alanine Aminotransfer ALT/SGPT 16 U/L (<=34); Albumin, Serum 3.9 g/dL (3.5-5.0); Alkaline Phosphatase 105 U/L (35-104); Anion Gap 10 (5-15); BUN 11 mg/dL (4-19); BUN/Creat Ratio 14.7 RATIO (10-20); Calcium,Total 8.8 mg/dL (7.6-11.0); Carbon Dioxide 23.1 mmol/L (21.0-32.0); Chloride 106 mmol/L (98-108); Cholesterol 190 mg/dL (<=200); Creatinine, Serum 0.74 mg/dL (0.70-1.20); EST Glomerular Filtration Rate 107 (>60); Globulin 2.9 g/dL (2.2-4.2); Glucose 91 mg/dL (70-99); High Density Lipoprotein 52 mg/dL; Low Density Lipoprotein Calc. 127 mg/dL; Potassium 4.1 mmol/L (3.3-5.1); Protein, Total 6.8 g/dL (5.9-8.4); Sodium Level 139 mmol/L (133-145); Total Bilirubin 0.74 mg/dL (0.00-1.30); Triglycerides 56 mg/dL; Very Low Density Lipoprotein 11 mg/dL (5-40); cholesterol:hdl ratio screen 3.64
== END | disposition home or self-care (01) ==
LOC: LAB 10:33
PROVIDERS: PCP Nurse Practitioner Family; Referring Provider Nurse Practitioner Family; Visit Provider Nurse Practitioner Family
DX: Z00.00 Encounter for general adult medical examination without abnormal findings (principal); E78.5 Hyperlipidemia, unspecified
CPT/HCPCS: 36415; 80053; 80061